=== PATIENT | female | born 1940 | race Caucasian/White ===

== ENCOUNTER 2021-04-20 15:52 | Outpatient (CLI) | payer MEDICARE, OTHER | END 2021-04-20 15:53 | disposition home or self-care (01) | LOC: COV 15:52 | PROVIDERS: ATTEND Family Medicine | DX: Z20.822 Contact with and (suspected) exposure to COVID-19 (principal) ==

== ENCOUNTER 2023-06-02 19:01 | Emergency (ER) | payer MEDICARE, OTHER ==
--- OUTSIDE RECORDS SUMMARY | 2023-06-02 20:16 | EXTERNAL MEDICAL SUMMARY RPT | Continuity of Care Document ---
Author Name Unknown Address [address] [place] [address] Phone Organization [place] Address [address] [place] [address] Phone Problems date description facility 2023-03-06 11:56 Unspecified abdominal pain [facility] 2023-03-12 22:18 Unspecified abdominal pain [facility] 2023-03-12 22:18 Fracture [facility]and[facility] adilia[facility]08 Disease of pancreas, [facility] 2023-03-20 14:22 Low back pain, unspecified [facility] 2023-03-20 15:04 Disease of pancreas, [facility] 2023-03-20 15:14 Low back pain, unspecified [facility] 2023-05-02 10:25 Malignant neoplasm o f unspecified site of [facility] 2023-05-02 10:25 Encounter for follow -up examination after completed treatment for malignant neoplasm [facility] 2023-05-02 10:25 Personal history of malignant n eoplasm of [facility] 2023-05-08 10:55 [facility] 2023-05-08 10:55 Encounter for follow -up examination after completed treatment for malignant neoplasm [facility] 2023-05-08 10:55 Personal history of malignant n eoplasm of [facility] Results/Labs test date facility value unit notes
[2023-06-02] MEDS ORDERED: KETOROLAC 15 MG/ML VIAL IVP STA (21:06)
[2023-06-02] MEDS ORDERED: LORazepam 2 MG/ML VIAL IVP STA (21:06)
--- NOTE | 2023-06-02 21:09 | ED Physician Documentation ---
PD HPI ABD PAIN - Stated complaint Stated Complaint: CONSTIPATED - Chief complaint Chief Complaint: Abd Pain - History obtained from History obtained from: Patient - Additional information Additional information: 82-year-old woman had diarrhea few days ago and took Imodium. Now for the last 2 days has not had a stool at all and has severe rectal pressure. Tried an enema at home which was unsuccessful. PD PAST MEDICAL HISTORY - Past Medical History Endocrine/Autoimmune: Type 2 diabetes, HyPOthyroidism GI: GERD Psych: Depression Musculoskeletal: Chronic back pain - Present Medications Home Medications: Ambulatory Orders Medication Instructions Recorded Confirmed Levothyroxine Sodium 25 mcg PO DAILY 02/20/17 06/02/23 SUMAtriptan [Sumatriptan] 20 mg NS DAILY 02/20/17 06/02/23 Losartan [Cozaar] 50 mg PO DAILY 06/02/23 06/02/23 Ondansetron HCl 4 mg PO PRN PRN 06/02/23 06/02/23 - Allergies Allergies/Adverse Reactions: Allergies Allergy/AdvReac Type Severity Reaction Status Date / Time Sulfa (Sulfonamide Allergy Unknown Verified 06/02/23 19:15 Antibiotics) - Social History Smoking Status: Never smoker PD ED PE NORMAL - Vitals Vital signs reviewed: Yes - General General: Alert and oriented X 3 (She appears uncomfortable) - Abdomen Abdomen: Normal bowel sounds, Soft, Non tender - Rectal Rectal: Other (Large firm fecal impaction with slightly inflamed but nonbleeding hemorrhoids) Results - Vitals Vitals: Vital Signs - 24 hr 06/02/23 19:14 Temperature 36.8 C Heart Rate 90 Respiratory 16 Rate Blood Pressure 163/82 H O2 Saturation 97 Oxygen O2 Source Room air PD Medical Decision Making - ED course ED course: 82-year-old woman presents with a fecal impaction, a lot of pain. She was medicated with Toradol and Ativan with good relief. After some manual disimpaction and a couple of enemas she cleared her fecal impaction and was feeling much better. Departure - Departure Disposition: 01 Home, Self Care Clinical Impression: Fecal impaction Condition: Good Record reviewed to determine appropriate education?: Yes Instructions: ED Impaction Fecal Treated Comments: You were seen tonight for a fecal impaction which is a large ball of stool in the rectum that becomes quite painful. We are able to clear it after a couple of enemas and some manual disimpaction after some medication for your pain and discomfort here. Drink plenty of fluids and try to keep your bowels regular. Call your doctor to arrange a follow-up appointment, make the next available appointment. In the interim, return anytime if worse or if new symptoms develop. Forms: PCP List
[2023-06-02] MEDS ORDERED: polyethylene glycoL 3350 17 GM PACKET PO STA (22:43)
[2023-06-02 23:07] VITALS: BP 128/77; O2SAT 95
== END 2023-06-02 23:07 | disposition home or self-care (01) ==
LOC: ED 19:01
DX: K56.41 Fecal impaction (principal)
CPT/HCPCS: 96374; 99283; A9270; J2060